=== PATIENT | male | born 1975 | race Caucasian/White ===

== ENCOUNTER 2023-04-18 14:41 | Outpatient (RCR) | payer OTHER, SELFPAY ==
--- NOTE | 2023-04-19 13:34 | BUOTOPEVAL ---
Assessment and note entered by Rosita Henriquez, OT Evaluation Information Assessment Status Evaluation Diagnosis Dog bite of forearm, left Onset Unknown Subjective Information The patient was unable to remember what month the dog attack happened or any recollection of when his surgeries were. The patient reports pain in L UE that wakes him up at night frequently. He stated there is numbness and tingling in L hand/ forearm described as severe. He reports 4-5/10 pain at the time of evaluation and 10/10 at its worst. The patient Reported Pain Level Pain Score 5: Self Report Assessment OT Clinical Summary The patient is a 47 year old male who was referred to outpatient OT due to injury following a dog bite. The patient previously demonstrated WNL UE AROM, strength, no swelling or pain that affect his ability to perform ADLs and work tasks independently. The patient now demonstrates moderately impaired swelling and pain and maximally impaired AROM and strength. The patient requires skilled OT to address these deficits and improve function of L UE needed to perform daily tasks. Plan of Care Interventions Therapeutic Exercise,Manual Therapy,Neuro Re- education,Therapeutic Activities,Hot Pack/Cold Pack,Electrical Stimulation,Sensory Integrative Techn,Self-Care/Home Management,Prosthetic Training,Check Out for Orthotic/Pr,Ultrasound OT Services Indicated Yes Treatment Frequency and 2-3x/week for 10 visits. Duration These treatments will address the objective and functional deficits as defined above. The patient will be advanced safely and appropriately in order for the patient to progress towards his/her prior level of function. Additional exercises will be introduced and as well as a comprehensive home exercise program upon discharge, if needed, ?to ensure carryover of functional gains achieved in the clinic. This treatment plan has been reviewed and agreement upon by the patient.
--- NOTE | 2023-05-13 10:44 | BUOTOPEVAL ---
Assessment and note entered by Rosita Henriquez, OT Evaluation Information Assessment Status Progress Diagnosis Dog bite of forearm, left Onset Unknown Subjective Information The patient was unable to remember what month the dog attack happened or any recollection of when his surgeries were. The patient reports pain in L UE that wakes him up at night frequently. He stated there is numbness and tingling in L hand/ forearm described as severe. He reports 4-5/10 pain at the time of evaluation and 10/10 at its worst. The patient Reported Pain Level Pain Score 0: Self Report Pain Score 0: Self Report Pain Score 5: Self Report Pain Score 0: Self Report Pain Score 9: Self Report Pain Score 5: Self Report Pain Score 5: Self Report Pain Score 9: Self Report Pain Score 4: Self Report Pain Score 3: Self Report Pain Score 5: Self Report Additional Pain Score Comments Pt. has no c/o pain. Additional Pain Score Comments Pt. denies having any pain at beginning of session . Assessment OT Clinical Summary The patient demonstrates significant progress in motor analyst strength, wrist AROM, wrist strength, and pain symptoms which have improved the patient's ability to engage in daily tasks with less pain and increased success and independence. The patient continues to demonstrate deficits in edema of affected UE, pinch strength, pain, motor analyst strength and digit AROM in order to make composite fist which affects his ability to utilize hand for work and daily tasks. The patient has made good progress with wrist AROM, although not to full AROM, the patient is at functional range and due to hardwear placement of plate and screws, the patient demonstrates WFL wrist mobility at this time. The patient to continue to engage in skilled OT to address scar management, motor analyst strength, pinch strength, and digit AROM to maintain composite grasp in order to return to OF. Plan of Care Interventions Therapeutic Exercise,Manual Therapy,Neuro Re- education,Therapeutic Activities,Hot Pack/Cold P
== END 2023-06-08 23:59 | disposition home or self-care (01) ==
LOC: CHSOT 14:41
PROVIDERS: PCP Family Medicine
DX: S55.102 Unspecified injury of radial artery at forearm level, left arm (principal); S55.0 Injury of ulnar artery at forearm level; S61.209D Unspecified open wound of unspecified finger without damage to nail, subsequent encounter; S52.252 Displaced comminuted fracture of shaft of ulna, left arm; S52.32 Transverse fracture of shaft of radius; S51.852D Open bite of left forearm, subsequent encounter
CPT/HCPCS: 97110; 97140; 97166; 97530